=== PATIENT | male | born 1950 | race Two or more races ===

== ENCOUNTER 2024-06-27 15:10 | Inpatient (IN) | payer OTHER ==
[~2024-06-27] VITALS: Ht 165.1 cm; Wt 61.2 kg
[2024-06-27 15:42] LABS: BASOPHILS % (AUTO) 0.1 % (0.0-2.0); EOSINOPHILS % (AUTO) 0.2 % (0.0-6.0); HEMATOCRIT 35 % (39-51); HEMOGLOBIN 11.8 g/dL (13.5-17.5); LYMPHOCYTES # (AUTO) 0.8 K/uL (0.8-4.8); LYMPHOCYTES % (AUTO) 6.5 % (20.0-44.0); MEAN CORPUSCULAR HEMOGLOBIN 32 PG (26.0-33.0); MEAN CORPUSCULAR HGB CONC 34 g/dl (31.0-36.0); MEAN CORPUSCULAR VOLUME 93 fL (80-96); MONOCYTES # (AUTO) 0.6 K/uL (0.1-1.30); MONOCYTES % (AUTO) 5.4 % (2.0-12.0); NEUTROPHILS # (AUTO) 10.5 K/uL (1.8-8.9); NEUTROPHILS % (AUTO) 87.8 % (43.0-81.0); PLATELET COUNT (AUTO) 142 K/uL (150-450); RED BLOOD CELL COUNT(AUTO) 3.71 MIL/uL (4.5-6.0); RED CELL DISTRIBUTION WIDTH 13.8 % (11.5-15.0); WHITE BLOOD COUNT (AUTO) 11.9 K/uL (4.3-11.0)
[2024-06-27 15:56] LABS: ALANINE AMINOTRANSFERASE 84 U/L (12-78); ALBUMIN 3.7 g/dL (3.4-5.0); ALKALINE PHOSPHATASE 109 U/L (46-116); ASPARTATE AMINOTRANSFERASE 51 U/L (15-37); BILIRUBIN,DIRECT 0.1 mg/dL (0.0-0.2); BILIRUBIN,TOTAL 0.3 mg/dL (0.2-1.0); CALCIUM, SERUM 9.5 mg/dL (8.5-10.1); CARBON DIOXIDE 32 mmol/L (21-32); CHLORIDE 107 mmol/L (98-107); GLUCOSE 187 mg/dL (74-106); POTASSIUM 4.2 mmol/L (3.5-5.1); SODIUM SERUM 145 mmol/L (136-145); TOTAL PROTEIN, SERUM 7.6 g/dL (6.4-8.2); UREA NITROGEN, BLOOD 31 mg/dL (7-18)
[2024-06-27] MEDS: IV NS 0.9% 1,000 ML BAG IV ONE (15:56)
[2024-06-27] MEDS: CEFEPIME 1 GM in IV D5W 50 ML IV ONE (15:57)
[2024-06-27 16:02] LABS: LACTIC ACID 3.2 mmol/L (0.4-2.0)
[2024-06-27 16:15] LABS: INR 0.99 (0.91-1.10); PARTIAL THROMBOPLASTIN TIME 32.2 SEC (24.3-34.3); PROTHROMBIN TIME 10.5 SECS (9.2-11.1)
[2024-06-27] MEDS ORDERED: METF-440 PO (16:19)
[2024-06-27] MEDS ORDERED: HYDR28.32 TP (16:19)
[2024-06-27] MEDS ORDERED: GABA100C PO (16:19)
[2024-06-27] MEDS ORDERED: INSU100V7 SQ (16:19)
[2024-06-27] MEDS ORDERED: RISP0.5T65 PO (16:19)
[2024-06-27] MEDS ORDERED: SIME80TA15 PO (16:19)
[2024-06-27] MEDS ORDERED: ASPI-1169 PO (16:19)
[2024-06-27] MEDS ORDERED: LEVE500T20 PO (16:19)
[2024-06-27] MEDS ORDERED: TRAZ-257 PO (16:19)
[2024-06-27] MEDS ORDERED: ATOR40TA PO (16:19)
[2024-06-27 17:15] LABS: APPEARANCE,URINE CLEAR (CLEAR); BILIRUBIN,URINE NEGATIVE (NEGATIVE); BLOOD, URINE NEGATIVE Ery/uL (NEGATIVE); COLOR,URINE YELLOW (YELLOW); KETONES,URINE TRACE mg/dL (NEGATIVE); LEUKOCYTE ESTERASE ,URINE NEGATIVE (NEGATIVE); NITRITE, URINE NEGATIVE (NEGATIVE); PH,URINE 5.5 (5.0-8.0); PROTEIN,URINE NEGATIVE (NEGATIVE); UGLUCOSE NEGATIVE (NEGATIVE); UROBILINOGEN,URINE 0.2 EU/dL (0.2)
[2024-06-27 18:15] LABS: MUCUS,URINE Few /LPF (None Seen); SQUAMOUS EPITHELIAL CELL,UR Few /HPF (None Seen)
[2024-06-27 18:16] LABS: ADD URINE CULTURE NO; BACTERIA,URINE Few /HPF (None Seen); RBC,URINE 0-2 /HPF (0-2); WBC,URINE NONE SEEN /HPF (0-3)
[2024-06-27 21:35] VITALS: BP 148/93; TEMP 96; O2SAT 96
[2024-06-27] MEDS ORDERED: ACETAMINOPHEN 325 MG TABLET PO PRN (22:30)
[2024-06-27] MEDS ORDERED: GABAPENTIN 100 MG CAPSULE PO PRN (22:30)
[2024-06-27] MEDS ORDERED: Z GUARD REMEDY 4 OZ OINT TP PRN (22:30)
[2024-06-27] MEDS ORDERED: ONDANSETRON HCL/PF 4 MG/2 ML VIAL IVP PRN (22:30)
[2024-06-27] MEDS: VANCOMYCIN 1 GM /D5W 250 ML PB IV ONE (22:46)
[2024-06-27] MEDS: IV LR 1000 ML 1,000 ML IV SCH (22:47)
[2024-06-27] MEDS: VANCOMYCIN 1 GM in IV NS 0.9% 250 ML IV ONE (22:49)
[2024-06-28] VITALS: BP 124/63; TEMP 97.3; O2SAT 95
[2024-06-28 04:00] VITALS: BP 107/56; TEMP 98.6; O2SAT 95
[2024-06-28 04:33] LABS: BASOPHILS % (AUTO) 0.1 % (0.0-2.0); EOSINOPHILS % (AUTO) 0.2 % (0.0-6.0); HEMATOCRIT 30 % (39-51); HEMOGLOBIN 10.3 g/dL (13.5-17.5); LYMPHOCYTES # (AUTO) 0.6 K/uL (0.8-4.8); LYMPHOCYTES % (AUTO) 3.6 % (20.0-44.0); MEAN CORPUSCULAR HEMOGLOBIN 31 PG (26.0-33.0); MEAN CORPUSCULAR HGB CONC 34 g/dl (31.0-36.0); MEAN CORPUSCULAR VOLUME 92 fL (80-96); MONOCYTES % (AUTO) 5.7 % (2.0-12.0); NEUTROPHILS # (AUTO) 15.6 K/uL (1.8-8.9); NEUTROPHILS % (AUTO) 90.4 % (43.0-81.0); PLATELET COUNT (AUTO) 140 K/uL (150-450); RED BLOOD CELL COUNT(AUTO) 3.29 MIL/uL (4.5-6.0); RED CELL DISTRIBUTION WIDTH 13.8 % (11.5-15.0); WHITE BLOOD COUNT (AUTO) 17.2 K/uL (4.3-11.0)
[2024-06-28 04:48] LABS: ALBUMIN 2.8 g/dL (3.4-5.0); BILIRUBIN,TOTAL 0.3 mg/dL (0.2-1.0); CALCIUM, SERUM 8.5 mg/dL (8.5-10.1); CREATININE 0.9 mg/dL (0.6-1.3); PHOSPHORUS 2.3 mg/dL (2.5-4.9); POTASSIUM 3.8 mmol/L (3.5-5.1); TOTAL PROTEIN, SERUM 6.1 g/dL (6.4-8.2)
[2024-06-28 04:58] LABS: MAGNESIUM 1.1 mg/dL (1.8-2.4)
[2024-06-28 05:00] LABS: THYROID STIMULATING HORMONE 1.46 uIU/mL (0.358-3.74)
[2024-06-28] MEDS: PANTOPRAZOLE 40 MG TABLET.DR PO SCH (07:30)
[2024-06-28 08:00] VITALS: BP 101/58; TEMP 97.9; O2SAT 95
[2024-06-28] MEDS: risperiDONE-M 0.5 MG TAB.RAPDIS PO SCH (09:00)
[2024-06-28] MEDS: LEVETIRACETAM (250 MG) 250 MG TABLET PO SCH (09:00)
[2024-06-28] MEDS ORDERED: ASPIRIN 81 MG TAB.CHEW PO SCH (09:00)
[2024-06-28] MEDS: ATORVASTATIN 40 MG TABLET PO SCH (09:00)
[2024-06-28] MEDS: ENOXAPARIN SODIUM 40 MG/0.4 ML DISP.SYRIN SQ SCH (09:00)
[2024-06-28] MEDS: SIMETHICONE 80 MG TAB.CHEW PO SCH (09:00)
[2024-06-28] MEDS: CEFEPIME 1 GM in IV D5W 50 ML IV SCH (09:36)
[2024-06-28 10:58] LABS: ABG BASE EXCESS 2.7 mmol/L (-2.0-3.0); ABG OXYGEN SATURATION 95.8 % (94.0-98.0); ABG PCO2 43.4 mmHg (35.0-48.0); ABG PO2 83.1 mmHg (83.0-108.0); ABG TOTAL HEMOGLOBIN 11.1 G/dL (13.5-17.5); COHb 0.3 % (0.5-1.5); MetHb 0.3 % (0.0-1.5); O2Hb 95.2 % (94.0-97.0); SITE, ABG RIGHT RADIAL
[2024-06-28] MEDS: IV LR 1000 ML 1,000 ML IV PRN (11:12)
[2024-06-28] MEDS: Magnesium 1GM/D5W 100ML PREMIX 100 ML IV SCH (11:20)
[2024-06-28 12:00] VITALS: BP 118/68; TEMP 98; O2SAT 95
[2024-06-28] MEDS ORDERED: CT SWABBABLE VALVE TRANS SET 1 EA INFUS.SET MC ONE (12:40)
[2024-06-28] MEDS ORDERED: IOHEXOL-350 100 ML VIAL IV ONE (12:40)
[2024-06-28] MEDS ORDERED: IV NS 0.9% 250 ML IV ONE (12:40)
[2024-06-28] MEDS: VANCOMYCIN 750 MG in IV D5W 250 ML IV SCH (12:46)
[2024-06-28 16:00] VITALS: BP 124/56; TEMP 98.2; O2SAT 98
[2024-06-28] MEDS: Sodium Phosphate 15 MMOL in IV NS 0.9% 245 ML IV SCH (18:01)
[2024-06-28 20:00] VITALS: BP 119/85; TEMP 97.5; O2SAT 100
[2024-06-28] MEDS: TRAZODONE 50 MG TABLET PO SCH (21:17)
[2024-06-28] MEDS: INSULIN GLARGINE, 100 UNIT/ML CARTRIDGE SQ SCH (21:58)
[2024-06-29] VITALS: BP 121/71; TEMP 97.5; O2SAT 100
[2024-06-29 04:00] VITALS: BP 139/66; TEMP 97.7; O2SAT 99
[2024-06-29 07:19] LABS: BASOPHILS % (AUTO) 0.1 % (0.0-2.0); EOSINOPHILS % (AUTO) 0.4 % (0.0-6.0); HEMATOCRIT 30 % (39-51); HEMOGLOBIN 10.2 g/dL (13.5-17.5); LYMPHOCYTES # (AUTO) 1.5 K/uL (0.8-4.8); LYMPHOCYTES % (AUTO) 11.8 % (20.0-44.0); MEAN CORPUSCULAR HEMOGLOBIN 31 PG (26.0-33.0); MEAN CORPUSCULAR HGB CONC 34 g/dl (31.0-36.0); MEAN CORPUSCULAR VOLUME 92 fL (80-96); MONOCYTES # (AUTO) 1.2 K/uL (0.1-1.30); MONOCYTES % (AUTO) 9.6 % (2.0-12.0); NEUTROPHILS # (AUTO) 9.6 K/uL (1.8-8.9); NEUTROPHILS % (AUTO) 78.1 % (43.0-81.0); PLATELET COUNT (AUTO) 143 K/uL (150-450); RED BLOOD CELL COUNT(AUTO) 3.26 MIL/uL (4.5-6.0); RED CELL DISTRIBUTION WIDTH 13.7 % (11.5-15.0); WHITE BLOOD COUNT (AUTO) 12.3 K/uL (4.3-11.0)
[2024-06-29 07:59] LABS: CREATININE 0.9 mg/dL (0.6-1.3); PHOSPHORUS 2.5 mg/dL (2.5-4.9); POTASSIUM 3.6 mmol/L (3.5-5.1)
[2024-06-29 08:00] VITALS: BP 137/67; TEMP 97.7; O2SAT 100
[2024-06-29] MEDS ORDERED: DEXTROSE 50%-WATER 50 ML DISP.SYRIN IV PRN (08:00)
[2024-06-29 12:00] VITALS: BP 141/74; TEMP 97.7; O2SAT 100
[2024-06-29 16:00] VITALS: BP 142/75; TEMP 97.5; O2SAT 100
[2024-06-29] MEDS: CEFEPIME 2 GM in IV D5W 100 ML IV SCH (17:01)
[2024-06-29 20:00] VITALS: BP 105/76; TEMP 98.4; O2SAT 98
[2024-06-30] VITALS: BP 121/57; TEMP 97.5; O2SAT 98
[2024-06-30 04:00] VITALS: BP 127/54; TEMP 97.8; O2SAT 100
[2024-06-30 06:21] LABS: BASOPHILS % (AUTO) 0.1 % (0.0-2.0); EOSINOPHILS # (AUTO) 0.1 K/uL (0.0-0.7); EOSINOPHILS % (AUTO) 0.6 % (0.0-6.0); HEMATOCRIT 30 % (39-51); HEMOGLOBIN 10.4 g/dL (13.5-17.5); LYMPHOCYTES % (AUTO) 12.3 % (20.0-44.0); MEAN CORPUSCULAR HEMOGLOBIN 32 PG (26.0-33.0); MEAN CORPUSCULAR HGB CONC 35 g/dl (31.0-36.0); MEAN CORPUSCULAR VOLUME 92 fL (80-96); MONOCYTES # (AUTO) 0.8 K/uL (0.1-1.30); MONOCYTES % (AUTO) 9.9 % (2.0-12.0); NEUTROPHILS # (AUTO) 6.5 K/uL (1.8-8.9); NEUTROPHILS % (AUTO) 77.1 % (43.0-81.0); PLATELET COUNT (AUTO) 142 K/uL (150-450); RED BLOOD CELL COUNT(AUTO) 3.22 MIL/uL (4.5-6.0); RED CELL DISTRIBUTION WIDTH 13.6 % (11.5-15.0); WHITE BLOOD COUNT (AUTO) 8.4 K/uL (4.3-11.0)
[2024-06-30 06:35] LABS: CALCIUM, SERUM 8.8 mg/dL (8.5-10.1); CREATININE 0.9 mg/dL (0.6-1.3); MAGNESIUM 1.9 mg/dL (1.8-2.4); PHOSPHORUS 3.1 mg/dL (2.5-4.9); POTASSIUM 3.6 mmol/L (3.5-5.1)
[2024-06-30 08:00] VITALS: BP 105/76; TEMP 98.4; O2SAT 98
[2024-06-30 12:00] VITALS: BP 110/81; TEMP 98; O2SAT 98
[2024-06-30 16:00] VITALS: BP 125/68; TEMP 98; O2SAT 98
[2024-06-30 20:00] VITALS: BP 137/71; TEMP 96.8; O2SAT 92
[2024-07-01 01:20] VITALS: BP 150/82; TEMP 96.9; O2SAT 100
[2024-07-01 04:00] VITALS: BP 146/67; TEMP 97.5; O2SAT 99
[2024-07-01 06:35] LABS: CALCIUM, SERUM 8.8 mg/dL (8.5-10.1); CREATININE 0.7 mg/dL (0.6-1.3); MAGNESIUM 1.9 mg/dL (1.8-2.4); PHOSPHORUS 3.2 mg/dL (2.5-4.9); POTASSIUM 3.3 mmol/L (3.5-5.1)
[2024-07-01 06:42] LABS: BASOPHILS % (AUTO) 0.1 % (0.0-2.0); EOSINOPHILS # (AUTO) 0.1 K/uL (0.0-0.7); HEMATOCRIT 28 % (39-51); HEMOGLOBIN 9.9 g/dL (13.5-17.5); LYMPHOCYTES % (AUTO) 12.1 % (20.0-44.0); MEAN CORPUSCULAR HEMOGLOBIN 32 PG (26.0-33.0); MEAN CORPUSCULAR HGB CONC 35 g/dl (31.0-36.0); MEAN CORPUSCULAR VOLUME 91 fL (80-96); MONOCYTES # (AUTO) 0.5 K/uL (0.1-1.30); MONOCYTES % (AUTO) 6.2 % (2.0-12.0); NEUTROPHILS # (AUTO) 6.5 K/uL (1.8-8.9); NEUTROPHILS % (AUTO) 80.6 % (43.0-81.0); PLATELET COUNT (AUTO) 144 K/uL (150-450); RED BLOOD CELL COUNT(AUTO) 3.09 MIL/uL (4.5-6.0); RED CELL DISTRIBUTION WIDTH 13.2 % (11.5-15.0); WHITE BLOOD COUNT (AUTO) 8.1 K/uL (4.3-11.0)
[2024-07-01 08:00] VITALS: BP 141/66; TEMP 98; O2SAT 99
[2024-07-01] MEDS: POTASSIUM CL. PREMIX PERIPHER. 50 ML IV SCH (10:28)
[2024-07-01 12:00] VITALS: BP 129/68; TEMP 97; O2SAT 100
[2024-07-01 16:00] VITALS: BP 131/63; TEMP 97; O2SAT 99
[2024-07-01 20:00] VITALS: BP 145/65; TEMP 98.9; O2SAT 97
[2024-07-02] VITALS: BP 135/75; TEMP 99.3; O2SAT 97
[2024-07-02 04:00] VITALS: BP 130/67; TEMP 98.2; O2SAT 97
[2024-07-02 06:05] LABS: CALCIUM, SERUM 9.5 mg/dL (8.5-10.1); CREATININE 0.8 mg/dL (0.6-1.3); POTASSIUM 3.3 mmol/L (3.5-5.1)
[2024-07-02 08:00] VITALS: BP 129/59; TEMP 97.9; O2SAT 99
[2024-07-02] MEDS: POTASSIUM CHLORIDE 20 MEQ TAB.PRT.SR PO SCH (10:43)
[2024-07-02 12:00] VITALS: BP 124/66; TEMP 97.5; O2SAT 98
[2024-07-02] MEDS: VANCOMYCIN 500 MG in IV D5W 100ml IV SCH (15:03)
[2024-07-02 16:00] VITALS: BP 112/68; TEMP 97.9; O2SAT 96
[2024-07-02 20:00] VITALS: BP 145/65; TEMP 101.5; O2SAT 95
[2024-07-03] VITALS: BP 114/55; TEMP 99.1; O2SAT 100
[2024-07-03 04:00] VITALS: BP 129/54; TEMP 98.1; O2SAT 100
[2024-07-03 07:03] LABS: CALCIUM, SERUM 8.4 mg/dL (8.5-10.1); CREATININE 1.2 mg/dL (0.6-1.3); POTASSIUM 3.3 mmol/L (3.5-5.1)
[2024-07-03 08:00] VITALS: BP 128/67; TEMP 98.4; O2SAT 96
[2024-07-03] MEDS: POTASSIUM CHLORIDE 20 MEQ TAB.PRT.SR PO ONE (08:17)
[2024-07-03 12:00] VITALS: BP 109/76; TEMP 98.5; O2SAT 98
[2024-07-03 12:09] LABS: ABG BASE EXCESS 0.9 mmol/L (-2.0-3.0); ABG OXYGEN SATURATION 93.6 % (94.0-98.0); ABG PCO2 44.9 mmHg (35.0-48.0); ABG PH 7.384 (7.350-7.450); ABG PO2 74.1 mmHg (83.0-108.0); COHb 0.3 % (0.5-1.5); MetHb 0.3 % (0.0-1.5); SITE, ABG RIGHT RADIAL
[2024-07-03 16:00] VITALS: BP 96/51; TEMP 97.8; O2SAT 98
[2024-07-03 20:00] VITALS: BP 132/60; TEMP 97.7; O2SAT 100
[2024-07-04] VITALS: BP 131/57; TEMP 97.5; O2SAT 100
[2024-07-04 04:00] VITALS: BP 112/47; TEMP 97.8; O2SAT 96
[2024-07-04 08:00] VITALS: BP 106/72; TEMP 97.7; O2SAT 96
[2024-07-04 12:15] LABS: BASOPHILS % (AUTO) 0.2 % (0.0-2.0); EOSINOPHILS % (AUTO) 2.2 % (0.0-6.0); HEMATOCRIT 27 % (39-51); HEMOGLOBIN 9.3 g/dL (13.5-17.5); LYMPHOCYTES % (AUTO) 19.4 % (20.0-44.0); MEAN CORPUSCULAR HEMOGLOBIN 32 PG (26.0-33.0); MEAN CORPUSCULAR HGB CONC 34 g/dl (31.0-36.0); MEAN CORPUSCULAR VOLUME 94 fL (80-96); MONOCYTES % (AUTO) 8.3 % (2.0-12.0); NEUTROPHILS % (AUTO) 69.9 % (43.0-81.0); PLATELET COUNT (AUTO) 189 K/uL (150-450); RED BLOOD CELL COUNT(AUTO) 2.89 MIL/uL (4.5-6.0); RED CELL DISTRIBUTION WIDTH 13.4 % (11.5-15.0); WHITE BLOOD COUNT (AUTO) 7.2 K/uL (4.3-11.0)
[2024-07-04 12:16] LABS: EOSINOPHILS # (AUTO) 0.2 K/uL (0.0-0.7); LYMPHOCYTES # (AUTO) 1.4 K/uL (0.8-4.8); MONOCYTES # (AUTO) 0.6 K/uL (0.1-1.30)
[2024-07-04 12:24] LABS: CALCIUM, SERUM 8.7 mg/dL (8.5-10.1); CREATININE 0.9 mg/dL (0.6-1.3); POTASSIUM 3.4 mmol/L (3.5-5.1)
[2024-07-04 16:00] VITALS: BP 115/56; TEMP 97.9; O2SAT 96
[2024-07-04 20:00] VITALS: BP 136/47; TEMP 98; O2SAT 96
[2024-07-05 04:00] VITALS: BP 128/49; TEMP 97.8; O2SAT 96
[2024-07-05 08:00] VITALS: BP 123/54; TEMP 98.5; O2SAT 98
[2024-07-05] MEDS ORDERED: LEVO750T46 PO (09:30)
== END 2024-07-05 12:15 | disposition home health service (06) | DRG 720 ==
LOC: ER 15:31 → TELE1 20:49 → MEDSG1 07-03 08:44 → TELE1 07-03 11:38 → MEDSG1 07-04 10:51
PROVIDERS: ADMIT Nurse Practitioner Acute Care; ATTEND Internal Medicine
DX: A41.9 Sepsis, unspecified organism (principal); G92.8 Other toxic encephalopathy; E87.20 Acidosis, unspecified; D69.6 Thrombocytopenia, unspecified; E87.0 Hyperosmolality and hypernatremia; T68.XXXA Hypothermia, initial encounter; J15.9 Unspecified bacterial pneumonia; E83.9 Disorder of mineral metabolism, unspecified; F03.90 Unspecified dementia, unspecified severity, without behavioral disturbance, psychotic disturbance, mood disturbance, and anxiety; I69.354 Hemiplegia and hemiparesis following cerebral infarction affecting left non-dominant side; E86.0 Dehydration; D64.9 Anemia, unspecified; E78.5 Hyperlipidemia, unspecified; E11.65 Type 2 diabetes mellitus with hyperglycemia; E86.1 Hypovolemia; E87.6 Hypokalemia; I25.10 Atherosclerotic heart disease of native coronary artery without angina pectoris; R13.10 Dysphagia, unspecified; M19.90 Unspecified osteoarthritis, unspecified site; L89.520 Pressure ulcer of left ankle, unstageable; L89.890 Pressure ulcer of other site, unstageable; J32.9 Chronic sinusitis, unspecified; Z79.84 Long term (current) use of oral hypoglycemic drugs; I69.820 Aphasia following other cerebrovascular disease; I10 Essential (primary) hypertension; G93.89 Other specified disorders of brain; Z79.4 Long term (current) use of insulin; T76.91XA Unspecified adult maltreatment, suspected, initial encounter; Y92.89 Other specified places as the place of occurrence of the external cause
CPT/HCPCS: 36415; 36600; 70450-TC; 70496-TC; 70498-TC; 71045-TC; 80048-TC; 80053-TC; 80061-TC; 80076-TC; 80202-TC; 81001; 82803-TC; 82962-TC; 83605-TC; 83735-TC; 84100-TC; 84443-TC; 84484-TC; 85025-TC; 85730-TC; 87040-TC; 92526; 92611-TC; 93307-TC; 94799-TC; 97110-TC; 97530-TC; 97535-TC; A4223; A9563; G0378; J0692; J1650; J1815; J3370; J3371; J3475; J3480; J3490; J7050; J7060; J7120; Q9967